=== PATIENT | female | born 1995 | race Caucasian/White ===

== ENCOUNTER 2020-05-17 15:13 | Emergency (ER) | payer OTHER ==
[~2020-05-17] VITALS: Ht 157.5 cm; Wt 63.5 kg
[2020-05-17 15:30] VITALS: Ht 157.5 cm; Wt 63.5 kg
[2020-05-17 17:59] VITALS: BP 143/86
== END 2020-05-17 18:06 | disposition other institution (70) ==
LOC: ED 15:13
DX: Z02.89 Encounter for other administrative examinations (principal)
CPT/HCPCS: U0003-CS

== ENCOUNTER 2020-07-26 18:35 | Emergency (ER) | payer MEDICAID ==
[2020-07-26 22:33] VITALS: BP 102/78
== END 2020-07-26 22:33 | disposition home or self-care (01) ==
LOC: ED 18:35
DX: F15.10 Other stimulant abuse, uncomplicated (principal)

== ENCOUNTER 2020-10-04 09:37 | Emergency (ER) | payer OTHER ==
[~2020-10-04] VITALS: Ht 160 cm; Wt 72.6 kg
[2020-10-04 09:40] VITALS: BP 118/79; Ht 160 cm; Wt 72.6 kg
== END 2020-10-04 10:21 ==
LOC: ED 09:37
DX: Z02.89 Encounter for other administrative examinations (principal)